=== PATIENT | male | born 1965 | race Caucasian/White ===

== ENCOUNTER 2019-02-12 09:09 | Emergency (ER) | payer BC | END 2019-02-12 09:22 | disposition left against medical advice (07) | LOC: UCCORT 09:09 | DX: K08.89 Other specified disorders of teeth and supporting structures (principal); Z53.21 Procedure and treatment not carried out due to patient leaving prior to being seen by health care provider ==

== ENCOUNTER 2019-05-22 09:11 | Emergency (ER) | payer BC ==
[2019-05-22 09:48] VITALS: BP 124/83
--- NOTE | 2019-05-22 10:07 | UC ---
Throat Pain/Nasal Celso HPI - HPI Summary HPI Summary: Pt with medical history of DM presents with progressive LLE leg pain and mild swelling x 5 days. Pt has taken APAP intermittently with mild improvement. Pt states feels cram-like at times. No paresthesia. concerned leg appears "darker" No h/o DVT. No travel + tobacco , no trauma meds reviewed - History of Current Complaint Chief Complaint: UCGeneralIllness Stated Complaint: HEAD CONGESTION, COUGH, VOMITING Time Seen by Provider: 05/22/19 09:51 Hx Obtained From: Patient Onset/Duration: Gradual Onset Severity: Mild Pain Intensity: 2 Pain Scale Used: 0-10 Numeric - Allergies/Home Medications Allergies/Adverse Reactions: Allergies Allergy/AdvReac Type Severity Reaction Status Date / Time No Known Allergies Allergy Verified 05/22/19 09:48 Home Medications: Home Medications Atenolol/Chlorthalidone [Atenolol/Chlorthalidone 50-25 mg-] 1 tab PO DAILY 05/22 [History Confirmed 05/22/19] PMH/Surg Hx/FS Hx/Imm Hx Previously Healthy: Yes Endocrine History: Diabetes, Dyslipidemia Cardiovascular History: Hypertension - Surgical History Surgical History: Yes Surgery Procedure, Year, and Place: 12/2006 right leg compound fx - Family History Known Family History: Positive: None, Other - denies PMH of skin disorders for parents., Non-Contributory - Social History Lives: With Family Alcohol Use: Occasionally Substance Use Type: None Smoking Status (MU): Never Smoked Tobacco - Immunization History Most Recent Influenza Vaccination: none Review of Systems All Other Systems Reviewed And Are Negative: Yes Constitutional: Positive: Negative Skin: Positive: Other - LLE Motor: Positive: Other - LLE calf pain Is Patient Immunocompromised?: No Physical Exam - Summary Physical Exam Summary: Vital Signs Reviewed: Yes A+Ox3, no distress Eyes: Conjunctiva Clear ENT: Hearing grossly normal neck: supple Respiratory: Positive: No respiratory distress, No accessory muscle use Cardiovascular: skin color reflect adequate perfusion, foot warm 2+ PD mild edema b/l LE- symmetric Musculoskeletal Exam: KERR x 4 without difficulty + SLE + flex/ext ankle + TTP distal 1/3 posterior calf + SLE flex/ext knee with discomfort distal calf + flex/ext ankle with pain distal calf Neurological: Positive: Alert, ambulatory without difficulty + gross sensation throughout LE, foot Psychological: Positive: Normal Response To Family Skin: Positive: no rash, no ecchymosis, warm, mild edema Triage Information Reviewed: Yes Vital Signs: Initial Vital Signs Temp 98.4 F 05/22/19 09:42 Pulse 88 05/22/19 09:42 Resp 16 05/22/19 09:42 BP 124/83 05/22/19 09:42 Pulse Ox 99 05/22/19 09:42 Throat Pain/Nasal Course/Dx - Course Course Of Treatment: Pt presents to with 5 days progressive Left calf disocmfort - deep ache, occasional spasm no fever, chills, trauma pt does smoke, has IDDM on exam, pt with discomfort to palp distal 1/3 calf pt with ROM with increased discomfort recommend pt to ED for U/S Pt in agreement - I spoke to CLAUDE Elizabeth in ED - aware pt coming by POV - Differential Dx/Diagnosis Provider Diagnosis: Pain of left calf Discharge ED - Sign-Out/Discharge Documenting (check all that apply): Patient Departure All imaging exams completed and their final reports reviewed: No Studies - Discharge Plan Condition: Stable Disposition: HOME Prescriptions: Fluticasone NASAL SPRAY 50MCG* [Flonase NASAL SPRAY 50MCG*] 2 spray BOTH NARES DAILY #1 btl Loratadine 10 mg PO DAILY #14 capsule Omeprazole 20 mg PO DAILY #30 capsule. Patient Education Materials: Gastroesophageal Reflux Disease (ED), Postnasal Drip (DC) Referrals: Trevin Hardwick MD [Primary Care Provider] - Additional Instructions: - Stay well hydrated. Drink plenty of non-alcoholic, non-caffinated beverages. For the first 6 hours, eat and drink clears (water, ayse thuy, soup broth, jello, popsicles, Gatorade). If you tolerate this okay, add bland foods such as dry toast, scrambled eggs, crackers. - Take pepcid as prescribed for your stomach acid - Use nasal spray daily - Take alelrgy medication as prescribed - get plenty of restful sleep - use 2 pillows to prop your head while sleeping - humidify the air in the room where you sleep - boil water, run a hot steam shower, vaporizer, cups of water by heat register - contact your doctor on Friday to schedule a follow-up appointment - Billing Disposition and Condition Condition: STABLE Disposition: Home
== END 2019-05-22 10:30 | disposition home or self-care (01) ==
LOC: UCCORT 09:11
DX: M79.662 Pain in left lower leg (principal); M79.89 Other specified soft tissue disorders; R09.81 Nasal congestion; R05 Cough; R11.10 Vomiting, unspecified; E11.9 Type 2 diabetes mellitus without complications; I10 Essential (primary) hypertension; Z79.899 Other long term (current) drug therapy
CPT/HCPCS: 99212; G0463